=== PATIENT | female | born 1975 | race Caucasian/White ===

== ENCOUNTER 2025-06-03 14:48 | Emergency (ER) | payer OTHER, SELFPAY ==
[2025-06-03 14:53] VITALS: BP 113/83; PULSE 113; RESP 16; TEMP 36.6; O2SAT 97
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
[2025-06-03] MEDS: Diph,Pertuss(Acell),Tet Vac/Pf 0.5 ML SYR IM (16:07)
[2025-06-03] MEDS: Lidocaine 1% Pres-Free 5 ML VIAL (16:10)
== END 2025-06-03 16:11 | disposition home or self-care (01) ==
PROVIDERS: Emergency Provider Student in an Organized Health Care Education/Training Program; PCP Nurse Practitioner Occupational Health
DX: S61.212A Laceration without foreign body of right middle finger without damage to nail, initial encounter (principal); W26.8XXA Contact with other sharp object(s), not elsewhere classified, initial encounter; Y93.55 Activity, bike riding; Y92.89 Other specified places as the place of occurrence of the external cause; Z23 Encounter for immunization
CPT/HCPCS: 12001; 90471; 90715; 99283; J2003